=== PATIENT | male | born 1950 | race Two or more races ===

== ENCOUNTER 2019-04-14 00:38 | Emergency (ER) | payer MEDICARE, BC ==
[~2019-04-14] VITALS: Ht 180.3 cm; Wt 88.5 kg
[2019-04-14] MEDS ORDERED: TAMS0.4C34 PO (00:53)
[2019-04-14] MEDS ORDERED: METF-440 PO (00:53)
[2019-04-14] MEDS ORDERED: SIMV10TA98 PO (00:53)
[2019-04-14] MEDS ORDERED: KETOROLAC TROMETHAMINE 30 MG INJ ONE (01:14)
[2019-04-14] MEDS ORDERED: KETOROLAC TROMETHAMINE 30 MG INJ IM ONE (01:15)
[2019-04-14 03:18] VITALS: BP 121/66
--- NOTE | 2019-04-14 03:18 | NUR ---
Patient discharged to home in stable conditon. Written and verbal after care instructions given. Patient verbalizes understanding of instructions. Ambulated from ER with stable gait. All belongings with patient.
== END 2019-04-14 03:19 | disposition home or self-care (01) ==
LOC: ER 00:54
DX: S16.1XXA Strain of muscle, fascia and tendon at neck level, initial encounter (principal); S39.012A Strain of muscle, fascia and tendon of lower back, initial encounter; E11.9 Type 2 diabetes mellitus without complications; E78.5 Hyperlipidemia, unspecified; Z79.899 Other long term (current) drug therapy; Z88.0 Allergy status to penicillin; V89.2XXA Person injured in unspecified motor-vehicle accident, traffic, initial encounter; Y93.89 Activity, other specified; Y92.89 Other specified places as the place of occurrence of the external cause; Y99.8 Other external cause status
CPT/HCPCS: 72125; 72131; 96372; 99284; J1885; A4663